=== PATIENT | male | born 1945 | race Two or more races ===

== ENCOUNTER → 2018-10-11 | Emergency (ER) | payer MEDICARE, MEDICAID ==
[~2018-10-11] VITALS: Ht 162.6 cm; Wt 74.8 kg
[~2018-10-11] MED LIST: NORCO 5-325 TA1 EACH ORAL; Norco 5mg/325mg tab ORAL ONE
--- NOTE | 2018-10-11 14:23 | Emergency Room Report ---
History of Present Illness General Chief Complaint: Multiple Trauma/Fall Source: Patient, EMS Present Illness HPI This is a 73-year-old male who presents with a fall and injured to the right foot. This happened prior to arrival. He complains of moderate right foot pain. No radiation. He denies any loss of consciousness. No exacerbating or relieving factor. Causing pain. Associated with swelling. He states he does have trouble walking and uses a walker normally. Allergies: Coded Allergies: No Known Allergies (Unverified , 10/11/18) Patient History Past Medical History: DM, HTN Past Surgical History: none Pertinent Family History: DM Nursing Documentation-[facility] Past Medical History: No History, Except For Hx Hypertension: Yes Hx Diabetes: Yes Hx Dialysis: Yes - tue, thurs and sat Review of Systems All Other Systems: negative except mentioned in HPI Physical Exam Vital Signs Date Time Temp Pulse Resp B/P (MAP) Pulse Ox O2 Delivery O2 Flow Rate FiO2 10/11/18 13:50 97.5 80 16 175/80 85 Room Air General Appearance: no apparent distress, alert, GCS 15, non-toxic Head: normocephalic, atraumatic Eyes: bilateral eye normal inspection, bilateral eye PERRL Neck: full range of motion, supple/symm/no masses Respiratory: chest non-tender, lungs clear, normal breath sounds, speaking full sentences Musculoskeletal: other - SWELLING TO THE RIGHT DORSUM OF THE FOOT. tENDERNESS TO THE TALUS OF THE RIGHT FOOT Neurologic: alert, oriented x3, responsive, inbound sales representative III-XII nml as tested Psychiatric: judgement/insight normal, memory normal, mood/affect normal, no suicidal/homicidal ideation Procedures Additional Procedure Procedure Narrative A right surgical shoe was placed on the right foot. This was for immobilization. Patient tolerated procedure well. Medical Decision Making Diagnostic Impression: Primary Impression: Fall Additional Impression: Metatarsal bone fracture ER Course Patient was seen and examined. Particularly very concerning acute multiple trauma. I also considered internal drainage of the right knee. X-ray was reviewed. I did review this with the radiologist. I see no signs of underlying infection. Patient is afebrile. He has no evidence of head injury or loss of consciousness. Patient will be discharged home with pain medication and close follow-up with his primary care physician. Other X-Ray Diagnostic Results Other X-Ray Diagnostic Results : X-Ray ordered: right knee and right foot # of Views/Limited Vs Complete: 3 View, Complete Indication: Pain EP Interpretation: No PA Xray: Interpretation reviewed Last Vital Signs Date Time Temp Pulse Resp B/P (MAP) Pulse Ox O2 Delivery O2 Flow Rate FiO2 10/11/18 13:50 97.5 80 16 175/80 85 Room Air Status: improved Disposition: HOME, SELF-CARE Condition: Stable Scripts Hydrocodone Bit/Acetaminophen 5-325* (NORCO 5-325*) 1 Each Tablet 1 TAB ORAL Q6H PRN, #20 TAB 0 Refills Prov: SHANNAN ABARCA 10/11/18 SHANNAN ABARCA Oct 11, 2018 14:22
[2018-10-11 14:29] VITALS: BP 169/78
--- NOTE | 2018-10-11 15:26 | Diagnostic Imaging Report ---
Indication: Right knee pain Technique: 3 views of the right knee Comparison: None Findings: No acute fractures. No dislocations. No suprapatellar effusion. The joint spaces are preserved. There are extensive vascular calcifications Impression: Negative
--- NOTE | 2018-10-11 15:51 | Diagnostic Imaging Report ---
Indication: Foot pain Technique: 3 views right foot Comparison: none Findings: There is dorsal soft tissue swelling there is a nondisplaced fracture of the fourth metatarsal.. The joint spaces are preserved. 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 There are vascular calcifications. No definite osseous erosions. The bones are osteoporotic Impression: Positive for nondisplaced fourth metatarsal fracture There is dorsal soft tissue swelling. Osteoporotic change Findings discussed by phone with Dr. Varela in the emergency room at the time of interpretation
[2018-10-11 17:20] VITALS: BP 158/72
== END | disposition home or self-care (01) ==
LOC: EDUNIT# 13:49 → EDBD 13:51 → EMR 14:30
DX: S92.301A Fracture of unspecified metatarsal bone(s), right foot, initial encounter for closed fracture (principal); S92.101A Unspecified fracture of right talus, initial encounter for closed fracture; M79.671 Pain in right foot; E11.9 Type 2 diabetes mellitus without complications; I10 Essential (primary) hypertension; W19.XXXA Unspecified fall, initial encounter; Y93.9 Activity, unspecified; Y92.9 Unspecified place or not applicable; Y99.9 Unspecified external cause status
CPT/HCPCS: 82962; 99284